=== PATIENT | male | born 1955 | race Caucasian/White ===

== ENCOUNTER 2019-11-02 07:44 | Day surgery (SDC) | payer OTHER ==
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
[~2019-11-02 07:44] MED LIST: Albuterol 0.083% 2.5 MG/3 ML Neb Soln NEB PRN; HYDROmorphone 0.5 MG/0.5 ML Syringe ONE; Lactated Ringers 1,000 ML IV SCH; Lactated Ringers 1,000 ML ONE; Lidocaine 1% 6 ML ONE; Lidocaine 1%/Sod Bicarbonate in NS 8.4% 1 ML Syringe IDERM PRN; Midazolam 1 MG/ML 2 ML SDV ONE; Ondansetron 4 MG/2 ML SDV ONE; Propofol 200 MG/20 ML SDV ONE; Sodium Chloride 0.9% 10 ML Syringe FLUSH PRN; ceFAZolin 1 GM Vial ONE; fentaNYL 250 MCG/5 ML SDV ONE
[2019-11-02] MEDS ORDERED: Lactated Ringers 1,000 ML IV SCH (08:24)
[2019-11-02] MEDS ORDERED: Lidocaine 1%/Sod Bicarbonate in NS 8.4% 1 ML Syringe IDERM SCH (08:25)
[2019-11-02] MEDS ORDERED: Bupivacaine 0.25% 10 ML SDV ONE (09:08)
[2019-11-02] MEDS ORDERED: Rocuronium 50 MG/5 ML Vial ONE (09:15)
[2019-11-02] MEDS ORDERED: Propofol 200 MG/20 ML SDV ONE (09:34)
[2019-11-02] MEDS ORDERED: fentaNYL 100 MCG/2 ML SDV IVPUSH PRN (09:53)
[2019-11-02] MEDS ORDERED: Ondansetron 4 MG/2 ML SDV IVPUSH PRN (09:53)
[2019-11-02] MEDS ORDERED: HYDROmorphone 0.5 MG/0.5 ML Syringe IVPUSH PRN ×2 (09:53→11:06)
[2019-11-02] MEDS ORDERED: ePHEDrine 50 MG/ML SDV IVPUSH PRN (09:53)
[2019-11-02] MEDS ORDERED: Albuterol 0.083% 2.5 MG/3 ML Neb Soln NEB PRN (09:53)
[2019-11-02] MEDS ORDERED: Phenylephrine 1 MG in Sodium Chloride 0.9% 10 ML IV SCH (10:00)
[2019-11-02] MEDS: Bupivacaine 0.25% 10 ML SDV ONE ×2 (10:05→10:18)
[2019-11-02] MEDS ORDERED: Labetalol 100 MG/20 ML MDV ONE (10:45)
--- NOTE | 2019-11-02 11:05 | PCM.POSTAN ---
POST ANESTHESIA ASSESSMENT - MENTAL STATUS Mental Status: Alert - VITAL SIGNS Vital Signs: Last Vital Signs Temp 97 11/02/19 1058 Pulse 79 11/02/19 1058 Resp 17 11/02/19 1058 BP 129/89 11/02/19 1058 Pulse Ox 92% 11/02/19 1058 - RESPIRATORY Respiratory Status: Respiratory Rate WNL, Airway Patent, O2 Saturation Stable, Supplemental Oxygen - CARDIOVASCULAR CV Status: Pulse Rate WNL, Blood Pressure Stable - GASTROINTESTINAL GI Status: No Symptoms - POST OP HYDRATION Hydration Status: Adequate & Stable
[2019-11-02] MEDS ORDERED: EPINEPHrine 1 MG/ML SDV ONE (11:08)
[2019-11-02] MEDS ORDERED: Ropivacaine 0.5% 5 MG/ML 30 ML SDV ONE (11:08)
[2019-11-02] MEDS ORDERED: Lidocaine 1% 2 ML ONE (11:14)
--- NOTE | 2019-11-02 11:20 | CR ---
Right knee: Two fluoroscopic spot views of the right knee were obtained utilizing C-arm device. Comparison: Prior right knee radiographic study of 09/14/18. First study shows orthopedic hardware in place within previous patellar fracture. Second exam shows removal of the hardware. Fluoroscopy time is given as 12.8 seconds. Impression: 1. Procedural study as noted above. Diagnostic code #2 This report was dictated in [place] Standard Time
[2019-11-02] MEDS: fentaNYL 100 MCG/2 ML SDV IVPUSH PRN ×2 (11:31→11:47)
--- NOTE | 2019-11-02 11:41 | PCM.SN ---
- Free Text/Narrative Note: Right selective femoral nerve block at the adductor canal for post-procedure pain control Time Out: 1116 Start: 1122 End: 1127 Chart reviewed. Consent signed. Questions answered. Appropriate monitors applied. Time out performed. Right mid-shaft femur evaluated with ultrasound. Scanning medially femur, I was able to identify the femoral artery in the adductor canal. The saphenous nerve was lateral to the artery. The skin was prepped lateral to the ultrasound probe with chlorahexadine. 2 ml of 1% lidocaine was used for skin injection. The 21ga 4 insulated block needle was inserted under direct ultrasound guidance into the adductor canal. 20mL of 0.5 % ropivacaine with 1:200,000 epinephrine was injected cirmcumferentially about the nerve with intermittent negative aspiration every 5mL. Patient tolerated the procedure well. No complications noted. See pictures on progress note and vital signs on nurses notes. Block completed postoperatively. Daily Da Silva [employer]LECTRIC METER [employer]ER
[2019-11-02] MEDS ORDERED: Acetaminophen/HYDROcodone 325-5 MG Tab PO PRN (11:45)
--- NOTE | 2019-11-06 14:26 | PCM.OPNOTE ---
- General Post-Op/Procedure Note Date of Surgery/Procedure: 11/02/19 Operative Procedure(s): right patellar deep hardware removal Pre Op Diagnosis: painful hardware right knee Post-Op Diagnosis: Same Anesthesia Technique: General LMA, Local Primary Surgeon: Johnny Demarco Anesthesia Provider: Shayy Tolliver Breakfast Manager: Tosin Faye in mLs: 5 Complications: None Condition: Good
--- NOTE | 2019-11-06 15:51 | OR ---
DATE OF OPERATION: 11/02/2019 SURGEON: Johnny Demarco MD OPERATION PERFORMED: Right patellar deep hardware removal. PREOPERATIVE DIAGNOSIS: Painful hardware, right knee. POSTOPERATIVE DIAGNOSIS: Painful hardware, right knee. ANESTHESIA: General LMA with local. ANESTHESIA PROVIDER: Shayy Tolliver CRNA. QC MANAGER: Tosin Faye PA-C ESTIMATED BLOOD LOSS: 5 mL. COMPLICATIONS: None. CONDITION: Stable. DESCRIPTION OF PROCEDURE: The patient was identified in the preoperative holding area where the proper site was marked and identified by the surgeon. The patient was taken back to the operative theater where after adequate anesthesia, the patient's right lower extremity had a nonsterile tourniquet applied and was then sterilely prepped and draped in the usual sterile fashion. OR time-out was performed. The patient received 2 g IV Ancef. Right lower extremity was exsanguinated. Tourniquet was insufflated to 250 mmHg. At this time, I used the proximal one-half of the incision down to the quadriceps tendon. There was noted to be a large amount of scar tissue in the subcutaneous tissue by the quadriceps tendon. There was significant overgrowth over the wire as well as the previous FiberWire that was used. It did take significant difficulty trying to get through the tissue to do as little damage as possible while still removing the wires, especially with the significant overgrowth and soft tissue the patient's BMI. Once I was able to find 1 K-wire, I was able to pull it proximally. The 2nd K-wire was buried deeper and did have a large amount of scar tissue, but then we found that and were able to remove that as well. The smaller wire was then identified and clipped and I was able to pull that out. It was scarred in and I did have to release it at numerous places. The lateral side where the knot had been tied for the thicker wire was then identified. It was noted to have significant scarring in and around it. I did have to make a larger incision for this through the quadriceps tendon and then able to finally clip the wire and then pull it out in whole. Once this was completed, adequate saline was irrigated through the wound. 0 Vicryl was used for closure of the areas where I had to make longitudinal splits in the quadriceps tendon. 2-0 Vicryl was used subcutaneously and mirella were used for the skin. The patient tolerated the procedure well and sent to PACU in stable condition. LINA /[id number] MTDGloria
== END 2019-11-02 14:32 | disposition home or self-care (01) ==
LOC: JD.SDS 07:44
PROVIDERS: ATTEND Orthopaedic Surgery
DX: T84.84XA Pain due to internal orthopedic prosthetic devices, implants and grafts, initial encounter (principal); G89.18 Other acute postprocedural pain; I10 Essential (primary) hypertension; E11.40 Type 2 diabetes mellitus with diabetic neuropathy, unspecified; E78.5 Hyperlipidemia, unspecified; G47.33 Obstructive sleep apnea (adult) (pediatric); N40.1 Benign prostatic hyperplasia with lower urinary tract symptoms; R35.0 Frequency of micturition; H90.71 Mixed conductive and sensorineural hearing loss, unilateral, right ear, with unrestricted hearing on the contralateral side; E66.9 Obesity, unspecified; Z68.38 Body mass index [BMI] 38.0-38.9, adult; Z79.84 Long term (current) use of oral hypoglycemic drugs; Z79.899 Other long term (current) drug therapy; Z99.89 Dependence on other enabling machines and devices; Y83.1 Surgical operation with implant of artificial internal device as the cause of abnormal reaction of the patient, or of later complication, without mention of misadventure at the time of the procedure
CPT/HCPCS: 20680; 64447; 76000; 82962; 87641; 94640; J0171; J0690; J1170; J2001; J2250; J2405; J2704; J2710; J2795; J3010; J3490; J7120; 01392; 64450